=== PATIENT | female | born 2000 | race Two or more races ===

== ENCOUNTER 2024-02-23 09:35 | Emergency (ER) | payer BC, SELFPAY ==
--- NOTE | 2024-02-23 09:49 | PC.NURSE ---
WHILE ATTEMPTING TO TRIAGE PT AT TRIAGE DESK, PT STATES I WANT TO SIGN OUT AND GO TO [facility] SINCE IT TAKES TOO LONG HERE. CONSEQUENCES EXPLAINED INCLUDING DUE TO PT NOW WITH C/O CHEST PAIN. SIGNED AMA FORM AND LEFT
== END 2024-02-23 09:57 | disposition left against medical advice (07) ==
LOC: SERX 10:01
PROVIDERS: Emergency Provider Emergency Medicine
DX: Z53.21 Procedure and treatment not carried out due to patient leaving prior to being seen by health care provider (principal)

== ENCOUNTER → 2024-06-07 | Outpatient (CLI) | payer BC, SELFPAY ==
--- NOTE | 2024-06-07 | XR_ITS ---
Examination: Thoracic spine 3 views Technique one AP lateral coned lateral upper dorsal spine 3 views Exam date and time: June 07, 2024 1249 hours INDICATIONS: Back pain after injury 2020 FINDINGS: Satisfactory alignment thoracic vertebral bodies No thoracic fracture No arthritic change IMPRESSION: No thoracic fracture
--- NOTE | 2024-06-07 | XR_ITS ---
Examination: Cervical spine 3 views Technique one AP lateral coned AP odontoid cervical spine 3 views Exam date and time: June 07, 2024 1247 hours INDICATIONS: Neck pain post injury 2020 FINDINGS: Straightening normal cervical lordosis. No cervical fracture. Intact odontoid No significant cervical disc narrowing IMPRESSION: No cervical fracture
== END | disposition home or self-care (01) ==
LOC: CDIM 11:14
PROVIDERS: PCP Nurse Practitioner Acute Care; Referring Provider Nurse Practitioner Acute Care; Visit Provider Nurse Practitioner Acute Care
DX: M54.50 Low back pain, unspecified (principal); M54.2 Cervicalgia
CPT/HCPCS: 72040; 72070

== ENCOUNTER 2024-09-09 22:20 | Emergency (ER) | payer BC, SELFPAY ==
[2024-09-09 22:21] VITALS: BMI 26.4
[2024-09-09 23:07] VITALS: BP 120/75; PULSE 73; RESP 18; TEMP 36.8; O2SAT 98
[2024-09-10] MEDS: DEXAMETHASONE SOD PHOS INJ 10 MG/ML VIAL PO (00:26)
--- NOTE | 2024-09-10 01:09 | EDNOTE_ITS ---
ED Asthma RME/HPI General Chief Complaint: Shortness of Breath/Dyspnea Stated Complaint: SOB, ASTHMA Time Seen by Provider: 09/10/24 00:16 Arrival date/time: 09/09/24 22:20 23F with history of asthma presents to ED with some SOB. Patient used albuterol w/ minimal relief. Limitations: no limitations Related Data Previous Rx's ?Medication ?Instructions ?Recorded docusate sodium 100 mg capsule 100 mg PO BID #20 caps 03/30/20 (Colace) hydrocodone 5 mg-acetaminophen 325 1 tab PO Q8H PRN pa in (scale score 03/30/20 mg tablet (Pomaria) 7-10) #10 tabs ibuprofen 600 mg tablet 600 mg PO Q8H PRN pain (scal e 03/30/20 score 4-6) #10 tabs doxycycline hyclate 100 mg capsule 100 mg PO BID #14 c aps 07/28/20 acetaminophen 650 mg 650 mg PO Q12H PRN pain #20 tabs 12/02/22 tablet,extended release (Tylenol 8 Hour) dicyclomine 20 mg tablet 20 mg PO QID PRN abdominal p ain 12/02/22 #30 tabs Allergies Allergy/AdvReac Type Severity Reaction Status Date / Time No Known Allergies Allergy Verified 03/30/20 08:17 Review of Systems Review of Systems Systems Reviewed: All systems reviewed, normal except as documented Constitutional Constitutional: Reports system reviewed and no additional complaints, except as documented, Denies fever(s) and Denies headache(s) ENT Ears, Nose, Mouth, and Throat: Denies disequilibrium and Denies headache(s) Cardiovascular Cardiovascular: Reports system reviewed and no additional complaints, except as documented, Denies chest pain and Reports dyspnea Respiratory Respiratory: Reports system reviewed and no additional complaints, except as documented, Reports as per HPI, Denies cough and Reports dyspnea Gastrointestinal Gastrointestinal: Reports system reviewed and no additional complaints, except as documented, Denies abdominal pain, Denies nausea and Denies vomiting Neurologic Neurologic: Reports system reviewed and no additional complaints, except as documented, Denies confusion, Denies disequilibrium and Denies headache(s) Psychiatric Psychiatric: Denies confusion Past Medical History Past Medical History NEUROLOGIC: Positive Neurological Disorders and Migraine; Negative Seizures CARDIAC: Negative Cardiac Disorders or Congestive Heart Failure RESPIRATORY: Positive Asthma; Negative Chronic Obstructive Pulmonary Disease (COPD) or Pneumonia GASTROINTESTINAL: Negative Gastrointestinal Disorders GENITOURINARY: Negative Genitourinary Disorders or Renal Disease REPRODUCTIVE: Negative Previous Pregnancies MUSCULOSKELETAL: Negative Musculoskeletal Disorders ENDOCRINE: Negative Endocrine Disorders, Diabetes Mellitus Type 1 or Diabetes Mellitus Type 2 HEMATOLOGIC: Negative Blood Disorders or Sickle Cell Disease OTHER HISTORY: Negative Hospitalization, Autoimmune Disease, Down Syndrome, Falls, Blood Transfusions, Blood Transfusion Reaction, Anesthesia Reactions, MRSA, Chicken Pox or Cancer Family History FAMILY HISTORY: Positive Family Cardiac Disorders and Family Surgery; Negative Family Psychiatric Problems, Family Respiratory Disorders, Family Gastrointestinal Problems, Family Cancer or Family Anesthesia Reaction Social History SMOKING STATUS: Never smoker SUBSTANCE USE: does not use ED Exam General Limitations: Present no limitations General appearance: Present alert and in no apparent distress Head Head exam: Present atraumatic Eye Eye exam: Present normal appearance, PERRL and EOMI ENT ENT exam: Present normal exam, normal oropharynx and mucous membranes moist Neck Neck exam: Present normal inspection, full ROM and trachea midline Chest Chest inspection: Present normal inspection and symmetric chest wall rise Respiratory Respiratory exam: Present prolonged expiratory phase Cardiovascular Cardiovascular exam: Present regular rate, normal rhythm and normal heart sounds Abdominal Exam Abdominal exam: Present soft and normal bowel sounds Extremities Exam Extremities exam: Present normal inspection and full ROM Back Exam Back exam: Present normal inspection and full ROM Neurological Exam Neurological exam: Present alert, oriented X3 and CN II-XII intact Psychiatric Psychiatric exam: Present normal affect and normal mood Skin Skin exam: Present warm, dry, intact and normal color Course Quality Measures none Orders Category Date Time Status Dexamethasone Inj [Decadron Inj] Med 09/10/24 00:16 Discontinued 10 mg PO X1 ONE Vital Signs Vital signs: Vital Signs Temperature 98.2 F 09/09/24 23:07 Pulse Rate 73 09/09/24 23:07 Respiratory Rate 18 09/09/24 23:07 Blood Pressure 120/75 09/09/24 23:07 Pulse Oximetry (%) 98 09/09/24 23:07 Oxygen Delivery Method Room Air 09/09/24 23:07 Asthma MDM Narrative MDM Narrative:: 23F with history of asthma presents to ED with some SOB. Patient used albuterol w/ minimal relief. Physical exam reveals clear lungs. Prolonged expiration. Patient is afebrile, calm, and alert. Steroids given. Patient did not want to wait to see if she felt better since she hwas work tomorrow. Environmental Test Technician given. Patient data External records reviewed:: [facility] previous records Clinical information provided by:: patient Social determinants that could affect healthcare access:: none Patient has the following chronic illnesses:: asthma How is presenting disease/condition affected by chronic disease/condition?: exacerbated by Evaluation data The following diagnostics were reviewed and interpreted by me:: other (specify) (none) Lab and/or radiology exams considered but not ordered:: not ordered Interpretation Summary: n/a Medications / Prescriptions Medications or Prescriptions considered but not ordered:: ordered Medication administrations:: Medication Administration History Discontinued Medications Dexamethasone Sodium Phosphate (Dexamethasone Sod Phos Inj 10 Mg/Ml Vial) 10 mg PO X1 ONE Stop: 09/10/24 00:17 Last Admin: 09/10/24 00:26 Dose: 10 mg Documented By: Consultations Consultation(s) initiated? (list below): No Diagnosis Differential diagnosis asthma: Acute exacerbation, Status asthmaticus, Acute asthmatic bronchitis, PE, Pneumonia, COPD exacerbation, Pulmonary edema systolic, Pulmonary edema dystolic, ARDS, Pneumothorax and Foreign body in trachea Most likely diagnosis given after review of the tests above:: mild asthma exacerbation Admission Indicated Admission indicated?: not indicated Admission Request Was there a request for admission?: No Disposition Plan Disposition Plan: Discharge Discharge Attestation Discharge Attestation: The patient and all family members were given an opportunity to ask questions and understood the discharge instructions. Discharge instructions specifically effects, indications for sooner follow up or return to the emergency department, and the expected course of current diagnosis. Patient condition: Stable Discharge Plan Plan Patient Disposition: HOME (Self Care) Disposition Comment: Stable Prescriptions/Referrals Prescriptions/Med Rec: No Action hydrocodone-acetaminophen [Pomaria] 5-325 mg tablet 1 tab PO Q8H MDD 3 PRN (Reason: pain (scale score 7-10)) Qty: 10 0RF docusate sodium [Colace] 100 mg capsule 100 mg PO BID Qty: 20 0RF ibuprofen 600 mg tablet 600 mg PO Q8H PRN (Reason: pain (scale score 4-6)) Qty: 10 0RF doxycycline hyclate 100 mg capsule 100 mg PO BID Qty: 14 0RF dicyclomine 20 mg tablet 20 mg PO QID PRN (Reason: abdominal pain) Qty: 30 0RF acetaminophen [Tylenol 8 Hour] 650 mg tablet extended release 650 mg PO Q12H PRN (Reason: pain) Qty: 20 0RF Problem List Clinical Impression: Mild asthma exacerbation Patient/Caregiver Discharge Instructions Education Materials: ED Asthma, Acute (Adult) Additional Instructions: Please follow-up with PCP within 24-48 hours and return immediately if symptoms worsen. Print Language: Greenlandic Stand Alone Forms: Patient Portal Info Letter PA/PARTS COUNTER SPECIALIST Supervising Physician PA/PARTS COUNTER SPECIALIST Supervising Physician: Dr. Bhardwaj
== END 2024-09-10 00:45 | disposition home or self-care (01) ==
LOC: SERX 09-10 00:45
PROVIDERS: Emergency Provider Emergency Medicine; PCP Internal Medicine
DX: J45.901 Unspecified asthma with (acute) exacerbation (principal)
CPT/HCPCS: 99282; J1100

== ENCOUNTER → 2024-09-10 | Outpatient (CLI) | payer BC, SELFPAY ==
--- NOTE | 2024-09-10 15:01 | XR_ITS ---
Examination: PA lateral chest 2 views Technique: Upright PA lateral chest 2 views Exam date and time: September 10, 2024 1503 hrs. Indications: Chest pain shortness of breath beginning today. Findings: Normal heart size No pneumonia or pulmonary edema The osseous structures are intact Impression: No pneumonia or pulmonary edema
== END | disposition home or self-care (01) ==
LOC: CDIM 14:48
PROVIDERS: PCP Internal Medicine
DX: R06.02 Shortness of breath (principal)
CPT/HCPCS: 71046

== ENCOUNTER → 2025-01-05 | Outpatient (CLI) | payer BC, SELFPAY ==
[2025-01-05 13:13] LABS: Basophils # (Auto) 0.0 Thou/mm3 (0.0-0.2); Basophils % (Auto) 1 % (0-2.5); Eosinophils # (Auto) 0.1 Thou/mm3 (0.0-0.5); Eosinophils % (Auto) 1 % (0-10); Hematocrit 38.2 % (36.0-46.0); Hemoglobin 13.5 g/dL (12.0-16.0); Immature Granulocytes Auto 0.01 Thou/mm3 (0.00-0.00); Lymphocytes # (Auto) 2.1 Thou/mm3 (1.0-4.8); Lymphocytes % (Auto) 36 % (10-50); Mean Corpuscular HGB Conc 35.3 g/dl (31.0-37.0); Mean Corpuscular Hemoglobin 28.2 pg (25.0-35.0); Mean Corpuscular Volume 80 fL (80-100); Monocytes # (Auto) 0.4 Thou/mm3 (0.0-0.8); Monocytes % (Auto) 8 % (0-12); Neutrophils # (Auto) 3.2 Thou/mm3 (1.8-7.7); Neutrophils % (Auto) 54 % (37-80); Nucleated Red Blood Cell # 0.00 Thou/mm3 (0.00-0.00); Nucleated Red Blood Cell % 0 /100 WBC (0); Platelet Count 396 Thou/mm3 (140-440); RDW Standard Deviation 40.3 fL (36.4-46.3); Red Blood Count 4.79 Miln/mm3 (4.00-5.20); White Blood Count 5.9 Thou/mm3 (3.6-11.0)
[2025-01-05 13:24] LABS: Glucose Estimated Average 111 mg/dL (80-131); Hemoglobin A1C 5.5 % Hgb (4.8-6.0)
[2025-01-05 13:28] LABS: Alanine Aminotransferase 87 U/L (10-49); Albumin, Serum 5.7 gm/dL (3.5-5.0); Albumin/Globulin Ratio 1.8 (1.2-2.2); Alkaline Phosphatase 70 U/L (46-116); Anion Gap 10 (7-16); Aspartate Amino Transferase 51 U/L (0-34); BUN/Creatinine Ratio 11 Ratio (12-20); Bilirubin,Total 0.5 mg/dL (0.3-1.2); Blood Urea Nitrogen 8 mg/dL (9-23); Calcium 10.5 mg/dL (8.3-10.6); Calcium (Corrected) 10.5 mg/dL (8.5-10.1); Carbon Dioxide 26.7 mMol/L (20.0-31.0); Chloride 103 mMol/L (98-107); Creatinine (Component) 0.7 mg/dL (0.6-1.3); Globulin 3.2 gm/dL (2.3-3.5); Glucose 83 mg/dL (74-106); Osmolality,Calculated 276 (275-295); Potassium 3.8 mMol/L (3.4-5.1); Sodium 140 mMol/L (136-145); Thyroid Stimulating Hormone 1.81 uIU/mL (0.55-4.78); Total Protein 8.9 gm/dL (5.7-8.2); eGFR > 60 See Note
[2025-01-05 13:34] LABS: T4 (Thyroxine) 6.7 mcg/dL (4.5-10.9)
[2025-01-05 13:35] LABS: Follicle Stimulating Hormone 7.47 mIU/mL (See Note)
[2025-01-17 07:05] LABS: Estradiol, Ultrasensitive* 41 pg/mL; Luteinizing Hormone* 8.3 mIU/mL; Prolactin* 7.0 ng/mL; Testosterone, Free,Dialysis 7.3 pg/mL (0.1-6.4); Testosterone, Total, Dialysis 34 ng/dL (2-45)
== END | disposition home or self-care (01) ==
LOC: COPL 12:11
PROVIDERS: PCP Internal Medicine; Referring Provider Obstetrics & Gynecology; Visit Provider Obstetrics & Gynecology
DX: E28.2 Polycystic ovarian syndrome (principal); N92.6 Irregular menstruation, unspecified; R35.0 Frequency of micturition
CPT/HCPCS: 36415; 80053; 82670; 83001; 83002; 83036; 84146; 84402; 84403; 84436; 84443; 85025

== ENCOUNTER → 2025-04-08 | Outpatient (CLI) | payer BC, SELFPAY ==
--- NOTE | 2025-04-08 15:45 | XR_ITS ---
Examination: Pelvic ultrasound, transabdominal, complete Technique: Transabdominal ultrasound of the pelvis performed using grayscale imaging Date and time of exam: April 08, 2025, 1534 hours INDICATIONS: Heavy vaginal bleeding 9 years FINDINGS: Uterus 6.6 cm endometrial stripe 1.0 cm No uterine mass or intrauterine gestation Right ovary 3.6 cm arterial flow Left ovary 3.9 cm arterial flow No fluid in the cul-de-sac IMPRESSION: Negative study
== END | disposition home or self-care (01) ==
PROVIDERS: PCP Nurse Practitioner Family; Referring Provider Nurse Practitioner Family; Visit Provider Nurse Practitioner Family
DX: R10.20 Pelvic and perineal pain unspecified side (principal)
CPT/HCPCS: 76856

== ENCOUNTER 2025-04-26 14:46 | Outpatient (AMB) | payer BC, SELFPAY ==
[2025-04-26 15:23] VITALS: BP 102/72; PULSE 81; RESP 18; TEMP 36.7; O2SAT 98; BMI 29.8
--- NOTE | 2025-04-26 15:23 | GYNCLNT_ITS ---
Vital Signs 04/26/25 15:23 Height 1.52 m Height Method Stated Weight 69.003 kg Weight Measurement Method Standing Scale BMI 29.8 BP 102/72 Blood Pressure Source Automatic Cuff Blood Pressure Location Right Upper Arm Position Sitting Respiration 18 Pulse 81 Pulse Source Monitor Temp 98.0 F Temp Source Temporal Artery Scan Pulse Oximetry (%) 98 Oxygen Delivery Method Room Air Allergies/Home Meds Allergies & Medications Allergies No Known Allergies Allergy (Verified 04/26/25 15:35) Medication Reconciliation docusate sodium 100 mg capsule (Colace) 100 mg PO BID #20 caps 03/30/20 [Rx C onfirmed 04/26/25] hydrocodone 5 mg-acetaminophen 325 mg tablet ([place]) 1 tab PO Q8H PRN pain (scale score 7-10) #10 tabs 03/30/20 [Rx Confirmed 04/26/25] ibuprofen 600 mg tablet 600 mg PO Q8H PRN pain (scale score 4-6) #10 tabs 03/30/20 [Rx Confirmed 04/26/25] doxycycline hyclate 100 mg capsule 100 mg PO BID #14 caps 07/28/20 [Rx Confirmed 04/26/25] acetaminophen 650 mg tablet,extended release (Tylenol 8 Hour) 650 mg PO Q12H PRN pain #20 tabs 12/02/22 [Rx Confirmed 04/26/25] dicyclomine 20 mg tablet 20 mg PO QID PRN abdominal pain #30 tabs 12/02/22 [Rx Confirmed 04/26/25] medroxyprogesterone 10 mg tablet 10 mg PO QDAY 10 days #10 tabs 04/26/25 [Rx] Intake Visit Data Collection New Patient or Established: Established Patient (seen at [facility] within 3 years) Reason for Visit:: transfer from [facility] for heavy periods / irregular cycles / 37 day cycles , last 8 days / Menarche at age 15/ LPS 01/2025 Seen by Clinical Staff ONLY (RN/MA): No [employer] Required: No Do You Feel Safe at Home: Yes Authorities Contacted: N/A PCP or OBGYN visit in last 3 months: No Hx Now: No Are you currently on any form of Control: No Pain Present Currently: No Pain Scale Used: Rosenberg-Beck/Numerical Pain scale:: 0 Smoking Status Smoking Status: Never smoker Immunizations Flu Vaccine in the Last 12 Months: No Flu Vaccine Exclusion Criteria: No Exclusion Criteria 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 Menstrual regularity: regular Flow: heavy Monthly: Yes Currently sexually active: Yes PARTY PLAN DEALER: Past Medical History Past Medical History: Yes Hx Neurological Disorders, No Hx Cardiac Disorders, No Hx Cancer, No Hx Blood Disorders, No Hx Gastrointestinal Disorders, No Hx Renal Disease, No Hx Diabetes Mellitus Type 1 and No Hx Diabetes Mellitus Type 2 Additional Operations/Hospitalizations (year & reason): h/o hemicolectomy in 2022 Other Relevant History: h/o PCOS Questionnaires Covid-19 Vaccine Questionnaire Has patient been vacinated for Covid-19 Have you been vacinated for Covid-19: No PHQ-9 PHQ-2 Over the last 2 weeks, how often have you been bothered by any of the following problems? 1. Little interest or pleasure in doing things: not at all 2. Feeling down, depressed, or hopeless: not at all Total score: 0 PHQ-9 3. Trouble falling or staying asleep, or sleeping too much: Not at all 4. Feeling tired or having little energy: Not at all 5. Poor appetite or overeating: Not at all 6. Feeling bad about yourself - or that you are a failure or have let yourself or your family down: Not at all 7. Trouble concentrating on things, such as reading the newspaper or watching television: Not at all 8. Moving or speaking so slowly that other people could have noticed? - Or the opposite - being so fidgety or restless that you have been moving around a lot more than usual: not at all 9. Thoughts that you would be better off or of hurting yourself in some way: Not at all Total score: 0 If you checked off any problems, how difficult have these problems made it for you to do your work, take care of things at home, or get along with other people?: not difficult at all Source: Developed by Drs. Nestor Quach, Poornima Bullock, Dipesh De Luna and colleagues, with an educational jacquelin from [employer]. Depression screen completed yes Social History Living Situation History Marital Status: Unknown Lives With: Family Housing: Apartment Tobacco History Smoking Status: Never smoker Second Hand Smoke Exposure: No Alcohol History Alcohol Intake: Never Domestic Abuse History Do You Feel Safe at Home: Yes History of Present Illness HPI Narrative 24 years with H/O PCOS / heavy periods and h/o hemicolectomy and also wants to conceive / refused BCPills / cyclic Provera / did receive TXA pills for heavy periods Review of Systems Review of Systems Systems Reviewed: All systems reviewed, normal except as documented Exam Narrative Physical exam: Alert and oriented x 3 no shortness of breath Pain no chest pain no palpitations Chest clear bilaterally no additional sounds, no wheezing no rales CVS regular rate and rhythm No CVAT Abdomen nontender, normal bowel sounds No guarding no rigidity No hernias Office Procedures [facility] Clinic LOC & Office Proc's Nursing/Assessment Patient Status: Established Patient OB Clinic Nursing Assessment: Medication Reconciliation, Update PMH in EMR and Vital Signs OB Clinic Coordination of Care: Complex Care and Chronic Disease 1-5, Education Complex Pt/Fam, Consent,records obtained, informed consent, Lab and Imaging orders, Results/Orders obtained and Staff clarify orders Established Patient Charge Established Patient Point Assignment: 110 Established Patient Point Charge: EP Level 3 (80-115) Assessment & Plan Diagnosis / Problem List (1) Anemia: Status: Acute (2) PCOS (polycystic ovarian syndrome): Status: Acute Assessment and Plan: Medical Office Building [address] [place] [address] [facility] Report Signed Patient: POLY OWEN Record#: [id number] Birthdate: 2000 Age/Sex: 24 / F Location: [facility] Attending Dr: Cindy RAYA Ordering Physician: Cindy Randall Date of Service: 04/08/25 Procedure(s): US pelvic complete Accession Number(s): [id number] cc: Cindy Randall; Henok Dietrich MD~ Examination: Pelvic ultrasound, transabdominal, complete Technique: Transabdominal ultrasound of the pelvis performed using grayscale imaging Date and time of exam: April 08, 2025, 1534 hours INDICATIONS: Heavy vaginal bleeding 9 years FINDINGS: Uterus 6.6 cm endometrial stripe 1.0 cm No uterine mass or intrauterine gestation Right ovary 3.6 cm arterial flow Left ovary 3.9 cm arterial flow No fluid in the cul-de-sac IMPRESSION: Negative study (3) Menometrorrhagia: Status: Acute Additional Assessment Her Hb was 8.8 and she will repeat CBC a week before next appointment / track periods / take provera 10 mgm po q day from 4th to 10th of each month When she gets a semen analysis in the partner can conside Ovulation pills / she has been trying to get x 4 years now / Take pills as well / LPS done 01/2025 / Last US don 04/2025 and is negative study / On provera her second month was less heavy / and she did take TXa oral once and that helped as well. Additional Plan 24 years with H/O PCOS / heavy periods and h/o hemicolectomy and also wants to conceive / refused BCPills / cyclic Provera did not help initially but now does / did receive TXA pills for heavy periods and used once and is a good back up treatment Follow Up: 3 to 6 months
== END 2025-04-26 15:47 | disposition home or self-care (01) ==
LOC: HODSOBC 14:46
PROVIDERS: PCP Obstetrics & Gynecology; Referring Provider Obstetrics & Gynecology; Supervising Provider Obstetrics & Gynecology; Visit Provider Obstetrics & Gynecology
DX: E28.2 Polycystic ovarian syndrome (principal); N92.1 Excessive and frequent menstruation with irregular cycle; D64.9 Anemia, unspecified; Z90.49 Acquired absence of other specified parts of digestive tract
CPT/HCPCS: 99213; G0463